=== PATIENT | female | born 1985 | race Asian ===

== ENCOUNTER 2025-10-01 07:41 | Outpatient (CLI) | payer BC | END 2025-10-01 07:42 | disposition home or self-care (01) | LOC: SCSULT 07:41 | PROVIDERS: ATTEND Internal Medicine Gastroenterology | DX: R79.89 Other specified abnormal findings of blood chemistry (principal); R10.13 Epigastric pain | CPT/HCPCS: 76705 ==

== ENCOUNTER 2025-11-04 07:47 | Day surgery (SDC) | payer BC ==
[2025-11-04 08:13] LABS: #Basophils 0.05 10x3/uL (0.0-0.2); #Eosinophils 0.28 10x3/uL (0.0-0.7); #Monocytes 0.40 10x3/uL (0.11-0.59); #Neutrophils 3.24 10x3/uL (1.40-6.50); %Basophils 0.8 % (0.0-1.0); %Eosinophils 4.4 % (0.0-10.0); %Lymphocytes 37.7 % (21.0-51.0); %Monocytes 6.3 % (0.0-10.0); %Neutrophils 50.6 % (42.0-75.0); Hematocrit 37.8 % (36.0-47.0); Hemoglobin 12.6 g/dL (12.0-16.0); Mean Corpuscular Hemoglobin 30.4 pg (27.0-31.0); Mean Corpuscular Volume 91.3 fL (78.0-98.0); Platelet Count 245 10x3/uL (130-400); Red Blood Cell (RBC) Count 4.14 mill/uL (4.20-5.40); White Blood Cell (WBC) Count 6.39 10x3/uL (4.8-10.8)
[2025-11-04 08:28] LABS: INR-International Normal Ratio 1.0; PTT 30.0 sec (22.9-36.1); Prothrombin Time 13.3 sec (12.0-14.7)
[2025-11-04] MEDS ORDERED: Sodium Bicarbonate 2.5 MEQ/5 ML SDV ONE (09:19)
[2025-11-04] MEDS ORDERED: Lidocaine 1% w/Epinephrine 1:100K 20 ML VIAL ONE (09:19)
== END 2025-11-04 13:43 | disposition home or self-care (01) ==
LOC: ULT 07:47
PROVIDERS: ATTEND Internal Medicine Gastroenterology
PROC: 0FB20ZX Excision of Left Lobe Liver, Open Approach, Diagnostic (ICD-10-PCS; principal; 2025-11-04)
DX: K83.09 Other cholangitis (principal); K74.00 Hepatic fibrosis, unspecified
CPT/HCPCS: 36000; 47000; 76942; 85025; 85610; 85730; 88307; 99152; 99153; J2250; J3010